=== PATIENT | female | born 1995 | race African-American/Black ===

== ENCOUNTER → 2017-07-30 | Outpatient (CLI) | payer OTHER | END | disposition home or self-care (01) | LOC: CFH 06:41 | PROVIDERS: ATTEND Specialist | DX: S33.6XXA Sprain of sacroiliac joint, initial encounter (principal); M99.05 Segmental and somatic dysfunction of pelvic region; M62.830 Muscle spasm of back; X58.XXXA Exposure to other specified factors, initial encounter; Y93.89 Activity, other specified; Y92.89 Other specified places as the place of occurrence of the external cause; Y99.8 Other external cause status | CPT/HCPCS: 72148 ==